=== PATIENT | female | born 1990 | race Two or more races ===

== ENCOUNTER 2021-10-14 15:00 | Inpatient (IN) | payer OTHER ==
[~2021-10-14] VITALS: Ht 154.9 cm; Wt 63.5 kg
[2021-10-23] MEDS ORDERED: IRON325 MG PO (07:13)
[2021-10-23] MEDS ORDERED: PRENATAL TABLE1 EAC3 PO (07:13)
[2021-10-23] MEDS ORDERED: CLARITIN10 M1 PO (07:13)
== END 2021-10-25 11:41 | disposition home or self-care (01) | DRG 768 ==
LOC: LDR 10-22 15:00 → SURG-SUITE 10-23 06:48
PROVIDERS: ADMIT Obstetrics & Gynecology; ATTEND Obstetrics & Gynecology
PROC: 10D07Z6 Extraction of Products of Conception, Vacuum, Via Natural or Artificial Opening (ICD-10-PCS; principal; 2021-10-23)
PROC: 0DQR0ZZ Repair Anal Sphincter, Open Approach (ICD-10-PCS; 2021-10-23)
PROC: 0W8NXZZ Division of Female Perineum, External Approach (ICD-10-PCS; 2021-10-23)
PROC: 4A1HXCZ Monitoring of Products of Conception, Cardiac Rate, External Approach (ICD-10-PCS; 2021-10-23)
DX: O70.21 Third degree perineal laceration during delivery, IIIa (principal); Z37.0 Single live birth; O66.5 Attempted application of vacuum extractor and forceps; Z3A.40 40 weeks gestation of pregnancy; Z20.822 Contact with and (suspected) exposure to COVID-19

== ENCOUNTER 2021-10-20 08:46 | Outpatient (CLI) | payer OTHER | END 2021-10-20 09:08 | disposition home or self-care (01) | LOC: NST 08:46 | PROVIDERS: ATTEND Obstetrics & Gynecology | DX: Z34.83 Encounter for supervision of other normal pregnancy, third trimester (principal) ==

== ENCOUNTER → 2025-05-22 | Outpatient (CLI) | payer OTHER ==
[~2025-05-22] MED LIST: CLARITIN10 M1 PO; IRON325 MG PO; PRENATAL TABLE1 EAC3 PO
== END | disposition home or self-care (01) ==
LOC: NST 12:25
PROVIDERS: ATTEND Obstetrics & Gynecology
DX: Z34.83 Encounter for supervision of other normal pregnancy, third trimester (principal)